=== PATIENT | male | born 1995 ===

== ENCOUNTER 2018-12-23 15:59 | Outpatient (CLI) | payer OTHER | END 2018-12-23 16:18 | disposition home or self-care (01) | LOC: LAB 15:59 | DX: E78.49 Other hyperlipidemia (principal); Z00.00 Encounter for general adult medical examination without abnormal findings; R42 Dizziness and giddiness ==

== ENCOUNTER → 2018-12-24 17:15 | Outpatient (CLI) | payer OTHER | END | disposition home or self-care (01) | LOC: LAB 17:15 | DX: J06.9 Acute upper respiratory infection, unspecified (principal) ==